=== PATIENT | female | born 1990 | race Caucasian/White ===

== ENCOUNTER 2018-08-26 01:01 | Inpatient (IN) | payer OTHER ==
[2018-08-26] MEDS ORDERED: LR 1,000 ML IV PRN (02:26)
[2018-08-26] MEDS ORDERED: IBUPROFEN 600 MG TAB PO PRN (02:26)
[2018-08-26] MEDS ORDERED: OLIVE OIL 118 ML BTL MISC PRN (02:26)
[2018-08-26] MEDS ORDERED: EPSOM SALT 454 GM TP PRN (02:26)
[2018-08-26] MEDS ORDERED: OXYTOCIN/RINGERS LACTATE 1,000 ML IV PRN (02:26)
[2018-08-26] MEDS ORDERED: LIDOCAINE 1% 300 MG/30 ML SDV SC PRN (02:26)
[2018-08-26] MEDS ORDERED: TERBUTALINE SULFATE 1 MG/ML VIAL IV PRN (02:26)
[2018-08-26] MEDS ORDERED: MISOPROSTOL 200 MCG TAB PR PRN (02:26)
--- NOTE | 2018-08-26 02:26 | PDGENHP ---
History and Physical History and Physical: Care: [facility] HPI: Patient is a [id number] with IUP@ 39-3 weeks that presents to L&D with complaints of contractions since 1900. she reports contractions q6min, rating them 6/10. She denies any LOF, VB. She reports +FM. EDC: 08/23/2018 which is based on LMP Her is complicated by: anemia, hypothyroid (dx'd in ) Review of Systems: Constitutional: Denies any fever, chills, or fatigue HEENT: denies any visual changes, difficulty swallowing, hearing loss Cardiovascular: Denies any chest pain, palpitations, leg swelling Respiratory: denies any cough, wheezing, or shortness of breathe GI: Denies any nausea, vomiting, diarrhea, constipation : denies any dysuria, urgency, frequency, vaginal bleeding Musculoskeletal: denies any muscle or bone pain Skin: denies any rashes Neuro: denies any headache, seizures, lightheadedness, dizziness, or loss of consciousness Psychiatric: denies any depression, anxiety, or SI/HI thoughts HISTORY: Previous OB history: x2, SAB x1 Past medical history: hypothyroid (dx'd in ) Past surgical history: none Social: Denies any alcohol, tobacco, or drug use. Family history: Not relevant Medications: PNV, iron, levothyroxine Allergies (list reaction): NKDA LABS: Rh: A+ ABS: Neg Rubella: Immune HbsAg: NR HIV: NR VDRL: NR 1hr: 109 GC: Neg Chlamydia: Neg Pap: Normal GBS: neg PHYSICAL EXAM: Constitutional: WN, A&Ox3 HEENT: normocephalic atraumatic, supple Skin: Warm, dry, intact Heart: RRR, no murmur Chest: CTA-B Abdomen: Soft, nontender, gravid SVE: 5/80/-2 Extremities: no edema, negative homans sign Neuro: grossly normal Psych: normal affect assessment: FHT baseline 125 +accels, no decels, moderate variability Contractions: toco q 2 Assessment: 1) [id number] with IUP@39-3wks 2) active labor 3) GBS negative 4) Cat 1 FHR tracing Plan: 1) Admit to L&D 2) expectant management 3) pain management PRN 4) anticipate Today's visit was [id number] min, of which >50% of visit 20 min, was spent face to face with pt on direct counseling/coordination of care.
[2018-08-26] MEDS ORDERED: LIDOCAINE 1% 300 MG/30 ML SDV ONE (03:50)
[2018-08-26] MEDS ORDERED: AMMONIA AROMATIC 1 EACH AMP IH ONE (03:51)
[2018-08-26] MEDS ORDERED: OXYTOCIN 10 UNIT/ML VIAL ONE (03:51)
[2018-08-26] MEDS ORDERED: TERBUTALINE SULFATE 1 MG/ML VIAL ONE (03:51)
[2018-08-26] MEDS ORDERED: OLIVE OIL 118 ML BTL ONE (03:51)
[2018-08-26] MEDS ORDERED: MISOPROSTOL 200 MCG TAB ONE (03:52)
[2018-08-26 03:55] LABS: PLATELET COUNT 201 10^3/uL (150-400)
--- NOTE | 2018-08-26 04:02 | OBPROG ---
Labor Progress Note Assessment/Plan: Assessment: [id number] with IUP@39-3wks Active labor GBS Negative Reassuring FHT's Plan: expectant management AROM PRN pain management PRN anticipate 08/26/18 03:59 Subjective/Intrapartum Course: 08/26/18 04:00 Pt reports pain with contractions, reports occ urge to push. desires SVE at this time. Objective: 08/26/18 03:40 - SVE Dilation (cm): 8 Effacement (%): 90 Station: -1 Membranes: Intact - Contraction Pattern Assessment Current Contraction Pattern: Regular - FHR Assessment Figueroa FHR (bpm): 125 CNM Assessment - Uterine Assessment Contraction Strength: Strong Uterine Resting Tone: Palpates Soft Between Uterine Contractions - Intermittent Auscultation Auscultation Method Used: Doppler Heart Rate Auscultated (bpm): 125 FHR Acceleration(s) Auscultated: Yes FHR Deceleration(s) Auscultated: No Oxytocin Orders Assessment - Pre-Induction/Augmentation Assessment Gestational Age: 39 week(s) and 3 day(s) ICD10 Worksheet Patient Problems: Problems Problem Status Onset Labor and delivery, indication for care Acute (spontaneous vaginal delivery) Acute - ICD10 Problem Qualifiers (1) Labor and delivery, indication for care
[2018-08-26] MEDS ORDERED: HYDROCORTISONE 0.5% CREAM TP PRN (05:17)
[2018-08-26] MEDS ORDERED: oxyCODONE IR 5 MG TAB PO PRN (05:17)
[2018-08-26] MEDS ORDERED: SIMETHICONE 80 MG TAB CHEW PO PRN (05:17)
--- NOTE | 2018-08-26 05:19 | OBDEL ---
Info Type: Vaginal Presentation at Delivery: Vertex L&D Analgesia/Anesthesia Type: None GBS+: No - Hospital Course Intrapartum: 08/26/18 04:00 Pt reports pain with contractions, reports occ urge to push. desires SVE at this time. Indications for Delivery: Spontaneous Labor, SROM Vaginal Delivery - Delivery Provider Delivery Physician/CNM: Sylvia Waller - Labor and Delivery Onset of Contractions Date: 08/25/18 Onset of Contractions Time: 19:00 Onset of Contractions Type: Spontaneous Rupture of Membranes Date: 08/26/18 Rupture of Membranes Time: 04:03 Rupture of Membranes Type: Spontaneous Amniotic Fluid Color: Clear Dilation Complete Date: 08/26/18 Dilation Complete Time: 04:03 Placenta Delivery Date: 08/26/18 Placenta Delivery Time: 04:53 Total Hours of Labor: 9 Laceration: 1st Degree Repair: 3-0, Vicryl Vaginal Sponge Count Correct: Yes Vaginal Needle Count Correct: Yes Vaginal Sweep Performed: Yes EBL: 150 Delivery Events: None Delivery Comment: delivered calmly unmedicated. baby to mom's chest. Spencer Data SILVESTRE: 08/30/18 Gestational Age: 39 week(s) and 3 day(s) Figueroa Delivery Date: 08/26/18 Delivery Time: 04:46 Sex of : Male Score (1 Min): 8 Score (5 Min): 8 ICD10 Worksheet Patient Problems: Problems Problem Status Onset Labor and delivery, indication for care Acute (spontaneous vaginal delivery) Acute - ICD10 Problem Qualifiers (1) Labor and delivery, indication for care
[2018-08-26] MEDS: ACETAMINOPHEN 325 MG TAB PO SCH ×4 (08:27→22:14)
[2018-08-26] MEDS: IBUPROFEN 600 MG TAB PO SCH ×4 (12:56→19:18)
[2018-08-26] MEDS: LEVOTHYROXINE 25 MCG TAB PO SCH (13:00)
[2018-08-27] MEDS: IBUPROFEN 600 MG TAB PO SCH ×4 (01:27→19:49)
[2018-08-27] MEDS: ACETAMINOPHEN 325 MG TAB PO SCH ×4 (04:24→19:50)
[2018-08-27] MEDS: LEVOTHYROXINE 25 MCG TAB PO SCH (04:24)
[2018-08-27] MEDS: DOCUSATE SODIUM 100 MG CAP PO PRN (07:16)
--- NOTE | 2018-08-27 11:10 | OBPP ---
Progress Note Assessment/Plan: Assessment: 27 y/o s/p ppd #1 Baby stable in NICU - r/o pneumonia vs TTN Plan: Routine pp care plan to d/c to boarder status tomorrow 08/27/18 11:05 08/27/18 11:16 Subjective/ Course: 08/27/18 11:10 Doing well. Pain well controlled with pain meds. Vag bleeding wnl, voiding, tolerating activity. Baby in NICU, on oxygen, receiving antibiotics while ruling out pneumonia vs TTN. going well with support. Objective: 08/26/18 03:40 Patient ABO/Rh A POSITIVE 08/26/18 03:40 Temp Pulse Resp BP Pulse Ox 36.3 C 70 18 99/64 L 97 08/27/18 07:30 08/27/18 07:30 08/27/18 07:30 08/27/18 07:30 08/27/18 07:30 Uterine Position/Fundal Height: Umbilicus -1 Uterine Tone: Firm Physical Exam - Physical Exam EENT: PERRL/EOMI Neck: full range of motion Respiratory: normal breath sounds Cardiac/Chest: regular rate, rhythm Extremities: normal range of motion Skin: normal color Neuro/Psych: no motor/sensory deficits, alert, normal mood/affect, oriented x 3
[2018-08-27 21:36] LABS: PLATELET COUNT 148 10^3/uL (150-400)
--- NOTE | 2018-08-27 21:52 | OBPP ---
Progress Note Assessment/Plan: Assessment: 27 y/o s/p ppd #1 Baby stable in NICU - r/o pneumonia vs TTN Plan: Routine pp care plan to d/c to boarder status tomorrow 08/27/18 11:05 08/27/18 11:16 08/27/18 21:49 notified by RN of patient temp of 102.7 po. Patient is having some chillling and headache, otherwise no other complaints. Uterus firm, non tender, U/2. Denies breast tenderness but reports breasts are filling. Will do CBC, UA - give tylenol po. Re check temp in [address] Tay. Subjective/ Course: 08/27/18 11:10 Doing well. Pain well controlled with pain meds. Vag bleeding wnl, voiding, tolerating activity. Baby in NICU, on oxygen, receiving antibiotics while ruling out pneumonia vs TTN. going well with support. Objective: 08/27/18 21:20 Patient ABO/Rh A POSITIVE 08/26/18 03:40 Temp Pulse Resp BP Pulse Ox 39.5 C H 116 H 18 115/65 97 08/27/18 21:06 08/27/18 19:37 08/27/18 19:37 08/27/18 19:37 08/27/18 19:37
[2018-08-27] MEDS: ACETAMINOPHEN 500 MG TAB PO PRN (22:14)
[2018-08-27] MEDS: NITROFURANTOIN MACROBID 100 MG CAP PO SCH (22:44)
[2018-08-28] MEDS: IBUPROFEN 600 MG TAB PO SCH ×4 (01:14→19:59)
[2018-08-28] MEDS: ACETAMINOPHEN 500 MG TAB PO PRN ×3 (04:39→20:30)
[2018-08-28] MEDS: LEVOTHYROXINE 25 MCG TAB PO SCH (04:40)
[2018-08-28] MEDS: NITROFURANTOIN MACROBID 100 MG CAP PO SCH (08:37)
[2018-08-28 09:19] LABS: PLATELET COUNT 149 10^3/uL (150-400)
[2018-08-28] MEDS ORDERED: CLINDAMYCIN 600 MG/DEXTROSE 50 ML IV SCH (09:32)
--- NOTE | 2018-08-28 09:59 | OBPP ---
Progress Note Assessment/Plan: Assessment: 27 y/o s/p ppd #2 pyelo vs endometritis Baby stable in NICU - r/o pneumonia vs TTN Plan: Continue to follow but hospitalist to manage care at this time IV Unasyn/Clindamycin Will stay on pp unit as long as remains stable 08/27/18 11:05 08/27/18 11:16 08/27/18 21:49 notified by RN of patient temp of 102.7 po. Patient is having some chillling and headache, otherwise no other complaints. Uterus firm, non tender, U/2. Denies breast tenderness but reports breasts are filling. Will do CBC, UA - give tylenol po. Re check temp in [address] Tay. 08/27/18 2300 Will treat for UTI based on UA results and send for culture. Continue to monitor temps and recheck CBC in AM. 08/28/18 10:04 Notified by phone at 0835 am by RN that pt had temp of 40.7, HR 130s, RR 30s, severe chilling, headache. Verbal orders for IV, CBC, blood cultures given. Stat team called. Dr Mcgraw notified. Dr Esparza at bedside upon arrival to hospital. See consult. Patient feeling much better at this time. Per Dr. Esparza - will start IV Unasyn/Clindamycin. Hospitalist team will continue to follow and manage care at this time. Will stay on pp unit for as long as she remains stable. Exam this AM suspicious for pyelo - having some increasing left flank pain overnight with definite left CVA tenderness this AM. Uterus firm U/2 with only mild tenderness to palpation - Vag bleeding WNL. Baby is stable this AM-blood cultures negative but will be staying for additional 5 days of antibiotics. Still on oxygen - well. 08/28/18 10:23 08/28/18 11:10 Subjective/ Course: 08/27/18 11:10 Doing well. Pain well controlled with pain meds. Vag bleeding wnl, voiding, tolerating activity. Baby in NICU, on oxygen, receiving antibiotics while ruling out pneumonia vs TTN. going well with support. Objective: 08/28/18 09:00 08/28/18 09:00 Patient ABO/Rh A POSITIVE 08/26/18 03:40 Total Bilirubin 0.7 mg/dL (0.1-1.4) 08/28/18 09:00 Conjugated Bilirubin 0.2 mg/dL (0.0-0.5) 08/28/18 09:00 Unconjugated Bilirubin 0.5 mg/dL (0.0-1.1) 08/28/18 09:00 AST 34 IU/L (14-46) 08/28/18 09:00 ALT 46 IU/L (9-52) 08/28/18 09:00 Temp Pulse Resp BP Pulse Ox 40.7 C H 138 H 24 H 111/63 92 08/28/18 08:40 08/28/18 08:40 08/28/18 08:40 08/28/18 08:40 08/28/18 08:40 Uterine Position/Fundal Height: Umbilicus -2 Uterine Tone: Firm Physical Exam - Physical Exam EENT: PERRL/EOMI Neck: non-tender Respiratory: lungs clear Cardiac/Chest: tachycardia Extremities: normal range of motion, pedal edema (mild pedal edema bilaterally) , calf tenderness (right calf tender to touch, no redness, swelling, barbara's negative) Back: CVA tenderness (left) Skin: other (febrile, warm to touch slightly flushed) Neuro/Psych: alert, normal mood/affect, oriented x 3
[2018-08-28] MEDS: AMPICILLIN/SULBACTAM 3 GM in NS 100 ML IV SCH ×2 (10:47→16:28)
[2018-08-28] MEDS: NS 1,000 ML IV SCH (11:25)
[2018-08-28] MEDS: CLINDAMYCIN 600 MG/DEXTROSE 50 ML IV SCH ×2 (12:20→19:59)
[2018-08-28] MEDS: FERROUS SULFATE 325 MG TAB PO SCH (13:36)
--- NOTE | 2018-08-28 15:59 | PDGENHP ---
History and Physical History and Physical: HOSPITAL MEDICINE CONSULT NOTE / CRITICAL CARE NOTE GREATER THAN 80 MIN OF CRITICAL CARE BEDSIDE TIME DURING 3 VISITS WITH THE PATIENT TODAY I was called to see the patient with the stat team due to acute sepsis. This patient was admitted to the hospital 2 days ago for routine delivery of her 3rd baby at 39+ gestation weeks. Her has been complicated so far by anemia and new onset hypothyroidism. She delivered her son that day, and overall he is doing well though he has had some respiratory issues and he is being treated for possible respiratory infection. The delivery was uncomplicated and the patient had been stable but last night had an episode of high fever. At that time a urine sample was obtained and showed evidence of some pyuria and so the patient was started on oral Macrobid. She does have 1 history of pyelonephritis, and apparently had a urine infection with a previous . Her fever resolved during the night, but again this morning she had temperatures of 40.5 degrees and developed hypotension and tachycardia resulting in a call for stat team. As I arrived at the bedside the patient is awake being tended to by the stat team. She has some normal saline that has been started as I arrive. Some blood has been obtained for culture and some CBC. The patient is oriented. She tells me that she feels sick and tired and too hot, with mild nausea. There is some very mild diffuse abdominal discomfort and some left flank ache, but no other pains. She does not specifically note dysuria. She has not vomited. She is not short of breath and does not have chest pain or cough and there is no pain in her legs. There is no headache, no flu-like symptoms or upper respiratory symptoms, and there has been no bleeding that we have noted. Vital signs at the time of my visit are temperature 40.5 degrees, pulse 140s, blood pressure 90/50 with previous blood pressures in the 110 systolic range and high 60s diastolic On my initial exam she is alert oriented, looks uncomfortable and fairly concerned about her acute situation Her respirations are relaxed and not labored Her skin is warm and dry with no rash, embolic phenomena, or open sores or lesions Her mentation is normal HEENT is unremarkable, neck has no goiter or tenderness or adenopathy No stridor Lungs have clear breath sounds Heart is regular with no murmur Abdomen is soft with normal bowel sounds present, and typical contour ; there is mild diffuse tenderness, without guarding or rebound but there is somewhat more significant tenderness at the left costovertebral angle. There are no palpable masses Extremities are warm and well perfused with good capillary refill and good color Joints are unremarkable IV site shows no signs of infection Blood test during my initial assessment show a white count [id number], with stable hemoglobin at 11 and stable mild low platelet count Her initial lactate is 2.1 venous with a slightly low CO2 at 20 but a normal anion gap, other chemistries unremarkable Review of last night's urinalysis shows mild pyuria with trace leukocyte esterase Imaging: I was present during abdominal ultrasound and the initial reading at the bedside is no abscess or signs of hemorrhage, no concerning findings other than acute changes Chest x-ray one view done and I reviewed the image which shows no acute abnormalities A Doppler ultrasounds done of the legs with no evidence of DVT DIAGNOSES: * acute sepsis with hypotension tachycardia high fevers elevated white blood cell count * absence of any acute organ injury initially * left flank pain and some hematuria and pyuria raising suspicion for pyelonephritis; the other differential diagnosis would be endometritis in terms of the cause of her sepsis * 2 days , with her son showing mild respiratory issues and being treated with antibiotics for suspected infection * expected anemia of RECOMMENDATIONS: * Sepsis protocol initiated with initial rapid aggressive IV fluid resuscitation * Blood cultures were obtained 2 sets * Macrobid discontinued * Empiric treatment right now with Unasyn and doxycycline to cover the range possible organisms in UTI and endometritis in the setting * Continue follow her course closely and make other changes as necessary
[2018-08-28] MEDS: MEROPENEM 1 GM in NS 100 ML IV SCH (22:11)
--- NOTE | 2018-08-28 22:57 | HOSPPROG ---
Hospitalist Progress Note Assessment/Plan: Additional 30 min of critical care time spent with this patient, specifically addressing her Serratia sepsis, which is currently rendering her critically ill with high risk of worsening morbidity and/or mortality. The following issues were addressed with the patient's nurse, coordinated with attending Dr. Mcgraw, and the patient was evaluated at bedside. -contacted by the nurse for recurrent fever, tachycardia -reviewed consultation note by Dr. Jae Esparza, reviewed business systems developer note,, reviewed vital sign trend which demonstrated hypotension earlier in the day, stabilization of her heart rate, and then acute worsening of her heart rate this evening with tachycardia up to 120-130, with recurrent fever -reviewed her labs and micro results, her urine culture is now growing Serratia -reviewed literature for Serratia sensitivities and resistance patterns, it appears that Serratia is frequently resistant to Unasyn, which the patient has been receiving today as empiric coverage for suspected left-sided pyelonephritis -physical exam demonstrates left flank tenderness, abdomen is soft, mostly nontender with no particular uterine tenderness, bowel sounds are present, heart rate is tachycardic, lungs are clear to auscultation but inspiratory effort is limited secondary to pain in the left flank, alert awake oriented x3, right upper extremity demonstrates some firm, mildly tender area at the previous IV site as well as some distal ecchymoses at a separate IV site on the dorsum of her right hand, current IV site does not have any swelling or induration and is proximal to the affected area -patient sources no other areas concern, she reports that her baby is latching well and she is not experiencing any mastitis -I suspect that the patient's persistent fever and recurrent tachycardia are indications that her infection is uncontrolled on the current antibiotic regimen and it is prudent to adjust her coverage to a carbapenemase which should cover serratia -discussed with Dr. Mcgraw, she has reviewed the literature and meropenem should be safe for breast-feeding, and will initiated at 1 g q.8 hours starting now -given her ongoing tachycardia, she is likely experiencing insensible losses, and although she is not currently hypotensive, I will increase her fluid rate from 100 cc/hour to 200 cc/hour and check venous lactic acid level to ensure that is not experiencing acute end-organ ischemia -I reassured the patient and her was at bedside -encourage the patient to elevate her right upper extremity, place warm compress for treatment of suspected superficial thrombophlebitis -I verbally signed out the patient to note keeper Dr. Conner Objective: Vital Signs Temp Pulse Resp BP Pulse Ox 40.2 C H 136 H 14 125/65 H 98 08/28/18 21:00 08/28/18 21:00 08/28/18 21:00 08/28/18 20:00 08/28/18 20:00 Laboratory Results 08/28/18 09:00 08/28/18 09:00 08/27/18 08/28/18 08/29/18 05:59 05:59 05:59 Intake Total 1000 2500 Output Total 150 750 Balance 850 1750 ICD10 Worksheet Patient Problems: Problems Problem Status Onset (spontaneous vaginal delivery) Acute Labor and delivery, indication for care Acute
[2018-08-29] MEDS ORDERED: NS 1,000 ML IV ONE (00:07)
[2018-08-29] MEDS: NS 1,000 ML IV SCH ×2 (02:02→15:27)
[2018-08-29] MEDS: IBUPROFEN 600 MG TAB PO SCH ×4 (02:02→17:27)
[2018-08-29] MEDS: LEVOTHYROXINE 25 MCG TAB PO SCH (06:18)
[2018-08-29 06:34] LABS: PLATELET COUNT 150 10^3/uL (150-400)
[2018-08-29] MEDS: MEROPENEM 1 GM in NS 100 ML IV SCH ×3 (07:07→22:27)
[2018-08-29] MEDS: DOCUSATE SODIUM 100 MG CAP PO PRN (08:13)
[2018-08-29] MEDS: FERROUS SULFATE 325 MG TAB PO SCH (08:13)
--- NOTE | 2018-08-29 10:58 | HOSPPROG ---
Hospitalist Progress Note Assessment/Plan: DIAGNOSES: * acute sepsis * acute pyelonephritis with Serratia marcescens and multiple drug resistance * with delivery of her son Vikash on 08/26 * side from infection no signs of complications of delivery for the patient; some with some mild respiratory issues needing oxygen and on antibiotic Overnight the patient had recurrent high fevers, low blood pressures, tachycardia, has responded to further IV fluid resuscitation. Lactate levels remain normal Urine cultures are growing a Serratia marcescens with multiple resistance to antibiotics including the Unasyn that we started yesterday, she is now on Merrem PLANS: * Continue IV fluids, follow vital signs very closely * Continue IV Merrem * Increase activity as tolerated * She can continue breast feeding * At this point DVT for prophylaxis should be considered, I will discuss with gynecology to see if she is low risk for bleeding which I would think she would be SUBJECTIVE: Somewhat tired, did not sleep well overnight with her illness and frequent interventions and nursing visits Still has flank pain which is now bilateral No other abdominal pain, eating well without nausea OBJECTIVE Vitals reviewed: 40.2 fever at 9:00 p.m. Last night, afebrile now; was hypotensive through some of the night but is with normal blood pressure and pulse now after further fluid resuscitations Offset Printer, my review: Exam: alert oriented, looks tired but in no distress, up walking about in her room skin warm dry color ok resps not labored lungs clear BSs heart regular abd still with some left-sided CVA tenderness, otherwise soft nondistended nontender, bowel sounds present limbs warm, no edema iv site ok Lab data: Lactic acid 1.2 last night White blood cell count today up 22,000, hemoglobin 9.2 Electrolytes and renal function okay, glucose normal Objective: Vital Signs Temp Pulse Resp BP Pulse Ox 36.6 C 92 16 114/78 98 08/29/18 09:45 08/29/18 09:45 08/29/18 09:45 08/29/18 09:45 08/29/18 09:45 Microbiology 08/27/18 21:45 Urine Culture - Final Urine,Clean Catch Serratia Marcescens Laboratory Results 08/29/18 06:00 08/29/18 06:00 08/28/18 08/29/18 08/30/18 06:59 06:59 06:59 Intake Total 5600 750 Output Total 2350 Balance 3250 750 - Time Spent With Patient Time Spent with Patient: greater than 35 minutes Time Spent with Patient: Greater than 35 minutes spent on this patients care, greater than 50% of time spent counseling, educating, and coordinating care regarding the above mentioned plan. ICD10 Worksheet Patient Problems: Problems Problem Status Onset Labor and delivery, indication for care Acute (spontaneous vaginal delivery) Acute
--- NOTE | 2018-08-29 11:14 | OBPP ---
Progress Note Assessment/Plan: Assessment: Plan: 08/29/18 11:13 Plan continued management by hospitalist, support by LC. Subjective/ Course: 08/27/18 11:10 Doing well. Pain well controlled with pain meds. Vag bleeding wnl, voiding, tolerating activity. Baby in NICU, on oxygen, receiving antibiotics while ruling out pneumonia vs TTN. going well with support. 08/29/18 11:11 Pt transferred to this morning. She is feeling well, except for chills. She is pumping, tolerating PO. Denies heavy bleeding, fundus firm at U. Objective: 08/29/18 06:00 08/29/18 06:00 Patient ABO/Rh A POSITIVE 08/26/18 03:40 Total Bilirubin 0.7 mg/dL (0.1-1.4) 08/28/18 09:00 Conjugated Bilirubin 0.2 mg/dL (0.0-0.5) 08/28/18 09:00 Unconjugated Bilirubin 0.5 mg/dL (0.0-1.1) 08/28/18 09:00 AST 34 IU/L (14-46) 08/28/18 09:00 ALT 46 IU/L (9-52) 08/28/18 09:00 Temp Pulse Resp BP Pulse Ox 36.6 C 92 16 114/78 98 08/29/18 09:45 08/29/18 09:45 08/29/18 09:45 08/29/18 09:45 08/29/18 09:45 Uterine Position/Fundal Height: At Umbilicus Uterine Tone: Firm
--- NOTE | 2018-08-29 12:00 | OBPP ---
Progress Note Assessment/Plan: Assessment: 27 y/o PPD #3 s/p uncomplicated now with urosepsis with Serratia Plan: Pt transferred to Medicine floor for careful monitoring today. She has been switched to Merrepenum for coverage and is doing much better. I added Lovenox 40 mg SQ for DVT prophylaxis. support for pumping for baby who is doing better in the NICU. Ob will follow along with Hospitalist. Thank you for medicine support. 08/29/18 12:01 Subjective/ Course: 08/27/18 11:10 Doing well. Pain well controlled with pain meds. Vag bleeding wnl, voiding, tolerating activity. Baby in NICU, on oxygen, receiving antibiotics while ruling out pneumonia vs TTN. going well with support. 08/29/18 11:11 Pt transferred to this morning. She is feeling well, except for chills. She is pumping, tolerating PO. Denies heavy bleeding, fundus firm at U. 08/29/18 11:48 I came to see and examine the patient this am. She has been transferred to Medicine floor, step down in order to closely monitor her vital signs and status because of urosepsis and decompensation yesterday. Last night she had episodes of high fevers, tachycardia and hypotension and had a stat team called yesterday afternoon. Overnight her urine culture revealed Serratia which was multi-drug resistant and she has been switched to Merrepenum. She feels better this am, has not had a fever. She reports some heaviness in her chest but not SOB. She reports mod back pain bilaterally, no dysuria, no fundal tenderness or other symptoms. She is working on pumping and her baby Vikash is doing much better in the NICU today. Objective: 08/29/18 06:00 08/29/18 06:00 Patient ABO/Rh A POSITIVE 08/26/18 03:40 Total Bilirubin 0.7 mg/dL (0.1-1.4) 08/28/18 09:00 Conjugated Bilirubin 0.2 mg/dL (0.0-0.5) 08/28/18 09:00 Unconjugated Bilirubin 0.5 mg/dL (0.0-1.1) 08/28/18 09:00 AST 34 IU/L (14-46) 08/28/18 09:00 ALT 46 IU/L (9-52) 08/28/18 09:00 Temp Pulse Resp BP Pulse Ox 36.6 C 92 16 114/78 98 08/29/18 09:45 08/29/18 09:45 08/29/18 09:45 08/29/18 09:45 08/29/18 09:45 Uterine Position/Fundal Height: Umbilicus -2 Uterine Tone: Firm Physical Exam - Physical Exam General Appearance: alert, no apparent distress Neck: non-tender, full range of motion, supple Respiratory: chest non-tender, lungs clear, normal breath sounds Cardiac/Chest: regular rate, rhythm Abdomen: normal bowel sounds, non-tender, other Extremities: swelling (no), Jennifer's sign (neg)
[2018-08-29] MEDS: ENOXAPARIN 40 MG/0.4 ML SYR SC SCH (12:35)
[2018-08-30] MEDS: IBUPROFEN 600 MG TAB PO SCH ×5 (01:08→21:54)
[2018-08-30] MEDS: ACETAMINOPHEN 500 MG TAB PO PRN ×2 (04:43→16:00)
[2018-08-30] MEDS: NS 1,000 ML IV SCH (05:16)
[2018-08-30] MEDS: MEROPENEM 1 GM in NS 100 ML IV SCH ×3 (06:04→21:54)
[2018-08-30] MEDS: LEVOTHYROXINE 25 MCG TAB PO SCH (06:05)
--- NOTE | 2018-08-30 06:09 | HOSPPROG ---
Hospitalist Progress Note Assessment/Plan: XC: Notified by RN of recurrent fever, tachycardia, and new hypoxia. During my evaluation patient is now requiring 6 L O2 and O2 sats remain only in the low 90s. I obtained a CXR (personally reviewed/interpreted) that reveals new RLL pneumonia and likely effusion. Early ARDS is also a possibility. The patient is complaining of labored breathing but otherwise asymptomatic. I discussed the case with Dr. Sarmiento of ID who suggested the possibility of septic thrombophlebitis in light of her recent delivery. As a result, I will evaluate for this with a CT scan as this would likely be an indication for anticoagulation. In addition, I will transfer patient to SDU for closer monitoring of her respiratory status. Dr. Sarmiento did not recommend change in her antibiotic therapy. GEN: Warm, sweating CV: rrr, no m/r/g RESP: Decreased RLL, no wheeze ABD: Non-tender, +BS NEURO: Alert, Ox3 Objective: Vital Signs Temp Pulse Resp BP Pulse Ox 38.1 C 103 H 18 110/62 92 08/30/18 04:45 08/30/18 04:45 08/30/18 04:45 08/30/18 04:45 08/30/18 04:45 Microbiology 08/27/18 21:45 Urine Culture - Final Urine,Clean Catch Serratia Marcescens Laboratory Results 08/29/18 06:00 08/29/18 06:00 08/29/18 08/30/18 08/31/18 05:59 05:59 05:59 Intake Total 5600 2000 Output Total 2350 600 Balance 3250 1400 ICD10 Worksheet Patient Problems: Problems Problem Status Onset (spontaneous vaginal delivery) Acute Labor and delivery, indication for care Acute
[2018-08-30] MEDS ORDERED: IOPAMIDOL (ISOVUE-300) 100 ML BTL ONE (06:10)
--- NOTE | 2018-08-30 09:02 | HOSPPROG ---
Hospitalist Progress Note Assessment/Plan: DIAGNOSES: * acute sepsis * acute pyelonephritis with Serratia marcescens and multiple drug resistance * with delivery of her son Vikash on 08/26 * side from infection no signs of complications of delivery for the patient; some with some mild respiratory issues needing oxygen and on antibiotic PLANS: * Stop IV fluids, one dose of lasix given (she had very large diuresis from this today and is now on room air comfortable with good sats * may need another dose of lasix over next day or two * Continue IV Merrem, and due to breast feeding will need to continue IV abx for her whole course, would not use levaquin * She can continue breast feeding * transfer back to mom baby unit this evening I have reivewed her findings and course and treatment plans in detail today with Dr Mancuso and Dr Sanders SUBJECTIVE: Early this a.m. became short of breath and hypoxemic. She does tell me that she had some pain in the chest with this and points to the right posterior lateral lower chest. She was started on oxygen by nasal cannula and felt much notably better. She was on 2 L nasal cannula during my visit with her this am and her pain is much less, though she does admit to some pleuritic pain at the anterior costal margins bilaterally. I ordered CT chest which showed no PE and evidence of some atelectasis and pleural effusion, some mild pulm edema. 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 I ordere CT chest and reviewed images: no PE, again are seen R pleural effusion and atelectasis, some mild pulmonary edema. I do not see changes that suggest to me pneumonia Microbiology: Blood cultures all negative so far Urine culture with Serratia with partial resistance to antibiotics but sensitive to the meropenem she is on Objective: Vital Signs Temp Pulse Resp BP Pulse Ox 36.9 C 85 16 110/77 95 08/30/18 07:21 08/30/18 07:21 08/30/18 07:21 08/30/18 07:21 08/30/18 07:21 Microbiology 08/27/18 21:45 Urine Culture - Final Urine,Clean Catch Serratia Marcescens Laboratory Results 08/29/18 06:00 08/29/18 06:00 08/29/18 08/30/18 08/31/18 06:59 06:59 06:59 Intake Total 5600 4100 Output Total 2350 1600 Balance 3250 2500 - Time Spent With Patient Time Spent with Patient: greater than 35 minutes Time Spent with Patient: Greater than 35 minutes spent on this patients care, greater than 50% of time spent counseling, educating, and coordinating care regarding the above mentioned plan. ICD10 Worksheet Patient Problems: Problems Problem Status Onset Labor and delivery, indication for care Acute (spontaneous vaginal delivery) Acute
[2018-08-30 09:20] LABS: PLATELET COUNT 160 10^3/uL (150-400)
[2018-08-30] MEDS: FERROUS SULFATE 325 MG TAB PO SCH (09:23)
[2018-08-30] MEDS: ENOXAPARIN 40 MG/0.4 ML SYR SC SCH (09:23)
[2018-08-30] MEDS ORDERED: IOPAMIDOL (ISOVUE 370) 100 ML BTL IV ONE (09:25)
--- NOTE | 2018-08-30 11:30 | GCON ---
INFECTIOUS DISEASE CONSULTATION REFERRING PHYSICIAN: J Carlos Conner MD REASON FOR CONSULTATION: Pyelonephritis due to more resistant Serratia. HISTORY OF PRESENT ILLNESS: This is a very pleasant 27-year-old woman, G4, P3, AB 1 with spontaneous vaginal delivery 08/26/2018, whose postoperative course has been complicated by high fever with evidence demonstrating Serratia UTI complicated by pyelonephritis. Patient was initially started on Unasyn and clindamycin, and on 08/28/2018, started on meropenem at 2200. Patient's left flank pain has resolved. Patient did not have polyuria, dysuria, etc. Overall , patient is still febrile, but the peak of her fever has overall declined from a T-max initially of 40.7 to currently 38.4. Patient did develop a leukocytosis of 21,000, 08/29/2018. Repeat labs have not been performed today. As an additional part of her workup, a CT abdomen, pelvis was performed that showed no intraabdominal septic thrombophlebitis. It is showed a enlarged uterus, which is expected , bilateral pleural effusion with infiltrates right greater than left, and left-sided pyelonephritis. This was personally reviewed by me with Radiology. Patient did not have Rose. Overnight, patient had increasing shortness of breath with mostly right-sided posterior pleuritic chest pain that is much improved since that time. She measured an O2 saturation of 77% on room air, had to initially be put on 6 L, but is now back down to 2 L at 95%. Overall, patient does describe feeling improved with less malaise and less left flank pain. PAST MEDICAL HISTORY: Positive for history of multiple UTIs, describes 2 UTIs per year since childhood. With each , she has had 1 UTI. Last antibiotics were in February for E coli. She does not remember, which antibiotic she received. She also has hypothyroidism and anemia during . PAST SURGICAL HISTORY: None. SOCIAL HISTORY: She is born and raised in [place]. She is . 2 other children. No alcohol, tobacco, or drug use. FAMILY HISTORY: Her father has diabetes, a history of blood clots. Also hypertension and cancer runs in the family. MEDICATIONS: She is on meropenem 1 g IV q.8. No immunosuppressants. She is on ppx with Lovenox. ALLERGIES: No known drug allergies. ROS: Complete 10 10 point review of systems was performed and is negative except as mentioned in HPI PHYSICAL EXAM: VITAL SIGNS: BP 110/77, HR 85, RR 16, saturation 95% on 2 L. In's and out's, she is positive 6 L. Weight is 84 kg. Temperature currently is 36.9. See T-max in HPI. GENERAL: This is a pleasant young woman lying in bed in no acute distress, speaking in complete sentences. HEENT: Mildly pale conjunctivae. No conjunctival hemorrhages. Oropharynx: Good dentition. Moist mucous membranes. No oral thrush. NECK: Supple. CARDIOVASCULAR: Regular rate and rhythm with an S3. No murmurs. CHEST: Bibasilar crackles about [address] No wheezes. She was breathing easy. ABDOMEN: Soft, nontender, consistent with status. She has no left or right flank pain. EXTREMITIES: She had some mild edema of all 4 extremities. SKIN: No rashes. NEUROLOGIC: She was moving all 4 extremities equally. Alert, oriented x4. LABORATORY/IMAGING: White count 21,000, hematocrit 27, platelets of 150, 83% neutrophils, 8% lymphocytes. Creatinine is 0.7. Labs from today are pending. Urinalysis from August 27 showed 10-15 RBCs, 5-10 WBCs, 4+ bacteria, negative glucose. Imaging as per HPI. In addition, patient had a chest x-ray, which showed bibasilar infiltrates, right greater than left. ASSESSMENT/PLAN: 27-year-old woman who is a couple days from delivery of a healthy baby boy who developed sepsis due to Serratia urinary tract infection. Serratia is only susceptible to carbapenems, aminoglycosides, and fluoroquinolones. During and breast-feeding, carbapenem will be the best choice for treating sepsis and pyelonephritis with a class B. Notably, patient's blood cultures have remained negative from the 28 of August. Generally, patient's hemodynamic trajectory is improving outside of fluctuating hypoxia. 1. Agree with meropenem for now. We will likely narrow to ertapenem tomorrow after further stabilization. Reviewed with patient and her that she will need a 2-week course of intravenous therapy. Discussed potential need for peripherally inserted central catheter line versus using peripheral intravenous. Also discussed the location of intravenous antibiotics either in the Infusion Center or at home. 2. Will continue to follow blood cultures. 3. Pulmonary workup per Critical Care team and General Medicine. Time 85 min >50% time spent with education and counseling regarding treatment of serratia, risks of antibiotics, need for 2 weeks of IV antibiotics, risk and benefits of PICC line. Also coordination of care with hospitalist and OB service. Thank you for this consultation. Will continue to see her on a daily basis. /[id number]/MODL MTDD
--- NOTE | 2018-08-30 11:40 | OBPP ---
Progress Note Assessment/Plan: Assessment/Plan: 27 yo G4 now P3013 PPD#4 s/p uncomplicated vaginal delivery, with PP course c/b L pyelonephritis and increased oxygen requirements this morning with R pleural effusion and atalectasis vs infiltrates. 1) pyelnephritis - Serratia marcescens - susceptible to merepenem. Continue/ adjust per ID 2) respiratory - increased O2 requirements this morning - atalectasis vs fluid overload vs pneumonia - will continue to observe per Medicine and Pulm 3) thrombotic precautions - is on 40mcg Lovenox daily (pp and sedentary) 4) pp - pumping, merepenem is Class B with . Continue routine pp cares and support. ID / Med / Pulm input and management greatly appreciated. Rena Phan MD, [facility] Subjective/ Course: 08/27/18 11:10 Doing well. Pain well controlled with pain meds. Vag bleeding wnl, voiding, tolerating activity. Baby in NICU, on oxygen, receiving antibiotics while ruling out pneumonia vs TTN. going well with support. 08/29/18 11:11 Pt transferred to this morning. She is feeling well, except for chills. She is pumping, tolerating PO. Denies heavy bleeding, fundus firm at U. 08/29/18 11:48 I came to see and examine the patient this am. She has been transferred to Medicine floor, step down in order to closely monitor her vital signs and status because of urosepsis and decompensation yesterday. Last night she had episodes of high fevers, tachycardia and hypotension and had a stat team called yesterday afternoon. Overnight her urine culture revealed Serratia which was multi-drug resistant and she has been switched to Merrepenum. She feels better this am, has not had a fever. She reports some heaviness in her chest but not SOB. She reports mod back pain bilaterally, no dysuria, no fundal tenderness or other symptoms. She is working on pumping and her baby Vikash is doing much better in the NICU today. 08/30/18 12:00 Pt was transferred back to the step down unit early this morning when she had sudden onset of increased O2 requirements. Currently she is resting comfortably , without any supplemental oxygen. Has been pumping and is doing well producing milk. Is voiding without difficulty. Lochia has decreased significantly, is changing a pad a few times per day. Objective: 08/30/18 09:10 08/30/18 09:10 Patient ABO/Rh A POSITIVE 08/26/18 03:40 Total Bilirubin 0.6 mg/dL (0.1-1.4) 08/30/18 09:10 Conjugated Bilirubin 0.2 mg/dL (0.0-0.5) 08/28/18 09:00 Unconjugated Bilirubin 0.5 mg/dL (0.0-1.1) 08/28/18 09:00 AST 22 IU/L (14-46) 08/30/18 09:10 ALT 34 IU/L (9-52) 08/30/18 09:10 Temp Pulse Resp BP Pulse Ox 36.9 C 85 16 110/77 95 08/30/18 07:21 08/30/18 07:21 08/30/18 07:21 08/30/18 07:21 08/30/18 07:21 gen - pleasant, NAD, resting comfortably in bed CV - RRR chest - decreased breath sounds at both bases, with crackles at R base abd - soft, + BS, fundus firm at u-4, NT ext -trace edema, no calf tenderness, Jennifer's neg BLE perineum - mild edema, repair is intact Uterine Position/Fundal Height: Umbilicus -3 (u-4) Uterine Tone: Firm
[2018-08-30] MEDS ORDERED: FUROSEMIDE 20 MG/2 ML VIAL IVP ONE (12:30)
[2018-08-30] MEDS ORDERED: POTASSIUM CL 20 MEQ/15 ML UDCUP PO ONE (12:30)
[2018-08-30] MEDS ORDERED: POTASSIUM CL 20 MEQ TAB PO ONE (12:45)
--- NOTE | 2018-08-30 13:41 | GCON ---
CRITICAL CARE CONSULT DATE OF CONSULTATION: 08/30/2018 HISTORY OF PRESENT ILLNESS: This patient is a 27-year-old mostly healthy female who was admitted , for routine term delivery, which was without complication; however, on 08/28, she developed a hig h fever. Urinalysis was suggestive of a urinary tract infection, and she had flank pain at the time. She was initially given Macrobid, but developed hypotension and tachycardia on the . Stat team was called. She was given IV fluids, and she responded quite well; however, her white count continu ed to rise to 21.8. Urine cultures eventually grew serratia, and she was started on meropenem late l ast evening; however, she developed significant rigors, which were associated with shortness of breat h and a nonproductive cough without hemoptysis. Her oxygen requirement, which was nil prior to the e vent, went up to 6 L, so she was moved to the step-down unit. There were no changes in her antibioti cs. A chest x-ray was performed that showed a new right lower lobe infiltrate, and her oxygen requir ement got better without much other change. She has continued to improve throughout the day today. She denies any cough or shortness of breath at this time, and her oxygen is 94% on room air. Her T-m ax, however, was 38.4. She has been seen by Infectious Disease. PAST MEDICAL HISTORY: Includes anemia, hypothyroidism, and remote pyelonephritis. PAST SURGICAL HISTORY: None. SOCIAL HISTORY: She is a nonsmoker. No alcohol or IV drug use. FAMILY HISTORY: Noncontributory at this time. CURRENT MEDICATIONS: Include Colace, Lovenox, iron, topical hydrocortisone, ibuprofen, Synthroid, me ropenem, Cytotec, oxycodone, Mylicon, terbutaline p.r.n. (I think that was once.) PHYSICAL EXAM: VITAL SIGNS: As I said, her T-max was 38.4; that was at 4 a.m. today. T-current is 36.6, blood pressure is 113/75, heart rate 95, respirations 20, oxygen saturation 96% on room air. G ENERAL: She is a very pleasant woman in no apparent distress and able to speak in full sentences wit hout using accessory muscles for breathing. HEENT: Pupils equally round and reactive to light, maldonado cteric and noninjected. Mucous membranes are moist without erythema or exudate. NECK: Supple witho ut adenopathy or jugular vein distention. LUNGS: Breath sounds are distant, but clear to auscultati on bilaterally without wheeze, rubs, rales. HEART: Regular rate and rhythm without murmurs, rubs, g allops. ABDOMEN: Soft, nontender, nondistended. EXTREMITIES: Show no clubbing, cyanosis, or edema . OBJECTIVE DATA: Includes a chest x-ray, as described above. The white count down to 16.2 today, hem atocrit of 25, platelets of 160. Basic metabolic panel is essentially normal, save for potassium 3.0 , bicarb of 18, albumin 2.2. CT angiogram showing patchy reticular infiltrates, right greater than left, with small bilateral effu sions, right greater than left, but no pulmonary embolism. ASSESSMENT/PLAN: Hypoxemia that appears to have been fairly transient. It is possible she has a blo ssoming pneumonia after she had received some fluids because of the urinary tract infection. Her inf iltrates are somewhat atypical, but they do not look completely like atelectasis since they do appear to be in the upper lobes. In any case, she has been seen by Infectious Disease. She is going to co ntinue meropenem for now. Follow up with cultures, and we may change those antibiotics depending on how well she does. Her oxygenation is completely resolved at this point. She can probably leave the step-down unit. /[id number]/MODL
[2018-08-31] MEDS: LEVOTHYROXINE 25 MCG TAB PO SCH (05:04)
[2018-08-31] MEDS: IBUPROFEN 600 MG TAB PO SCH ×3 (05:05→16:57)
[2018-08-31 05:24] LABS: PLATELET COUNT 208 10^3/uL (150-400)
[2018-08-31] MEDS: MEROPENEM 1 GM in NS 100 ML IV SCH (05:33)
[2018-08-31] MEDS: ENOXAPARIN 40 MG/0.4 ML SYR SC SCH (08:42)
[2018-08-31] MEDS: DOCUSATE SODIUM 100 MG CAP PO PRN (08:44)
[2018-08-31] MEDS: FERROUS SULFATE 325 MG TAB PO SCH (08:44)
--- NOTE | 2018-08-31 09:06 | SOAPPROG ---
SOAP Progress Note Assessment/Plan: 08/29/18 @ 1245 Pt seen by CNM Pt on med surg floor 2/2 oxygen sat and fever, r/o sepsis. She is being managed by hospitalist at this time. CNMs will cont to see daily, for social visits/ rounds. Pt is ambulatory and alert. She reports feeling ok, reports fevers/chills. Baby is in NICU on O2 and getting abx but overall improving. Mom is /pumping- with good milk supply. Her has been present, today back at work. Uterus is firm and U-2, bleeding scant. perineum healing well. will defer to medicine for plan of care. Objective: Vital Signs Temp Pulse Resp BP Pulse Ox 37.2 C 84 16 116/81 H 92 08/31/18 05:00 08/31/18 05:00 08/31/18 05:00 08/31/18 05:00 08/31/18 05:00 Laboratory Results 08/31/18 05:10 08/30/18 09:10 08/30/18 08/31/18 09/01/18 05:59 05:59 05:59 Intake Total 4100 3420 Output Total 1600 Balance 2500 3420 ICD10 Worksheet Patient Problems: Problems Problem Status Onset Labor and delivery, indication for care Acute (spontaneous vaginal delivery) Acute - ICD10 Problem Qualifiers (1) Labor and delivery, indication for care
--- NOTE | 2018-08-31 09:11 | SOAPPROG ---
LATISHA Progress Note Assessment/Plan: 08/31/18 @0845 Pt seen by CNM Pt stable and back on MB/NICU. CNM's will cont to see daily, for social visits/ rounds. Pt is ambulatory and alert. She reports significant improvement since dieretic given, she denies any CP/SOB. reports last fever yesterday afternoon. She has been ambulating. She is - which is going well, states Vikash is latching well. She is also continuing to pump. Milk supply good. Baby, Vikash, is in NICU- stable but on O2. Uterus is firm and U-3, bleeding scant. perineum healing well. ID / Med / Pulm input and management greatly appreciated. Objective: Vital Signs Temp Pulse Resp BP Pulse Ox 37.2 C 84 16 116/81 H 92 08/31/18 05:00 08/31/18 05:00 08/31/18 05:00 08/31/18 05:00 08/31/18 05:00 Laboratory Results 08/31/18 05:10 08/30/18 09:10 08/30/18 08/31/18 09/01/18 05:59 05:59 05:59 Intake Total 4100 3420 Output Total 1600 Balance 2500 3420 ICD10 Worksheet Patient Problems: Problems Problem Status Onset Labor and delivery, indication for care Acute (spontaneous vaginal delivery) Acute - ICD10 Problem Qualifiers (1) Labor and delivery, indication for care
--- NOTE | 2018-08-31 09:39 | OBPP ---
Progress Note Assessment/Plan: Assessment: Pt is s/p uncomplicated vaginal delivery PPD #5 with PP course c/b L pyelonephritis with serratia and increased oxygen requirements yesterday morning with R pleural effusion and atelectasis vs infiltrates Plan: Continue routine pp care and support Pt afebrile this am and stable Continue IV abx - merepenam which is susceptible to serratia per ID Pt not requiring oxygen this am, s/p lasix - likely fluid overload and not pneumonia ID / Med / Pulm input and management greatly appreciated 08/31/18 09:44 Subjective/ Course: 08/27/18 11:10 Doing well. Pain well controlled with pain meds. Vag bleeding wnl, voiding, tolerating activity. Baby in NICU, on oxygen, receiving antibiotics while ruling out pneumonia vs TTN. going well with support. 08/29/18 11:11 Pt transferred to this morning. She is feeling well, except for chills. She is pumping, tolerating PO. Denies heavy bleeding, fundus firm at U. 08/29/18 11:48 I came to see and examine the patient this am. She has been transferred to Medicine floor, step down in order to closely monitor her vital signs and status because of urosepsis and decompensation yesterday. Last night she had episodes of high fevers, tachycardia and hypotension and had a stat team called yesterday afternoon. Overnight her urine culture revealed Serratia which was multi-drug resistant and she has been switched to Merrepenum. She feels better this am, has not had a fever. She reports some heaviness in her chest but not SOB. She reports mod back pain bilaterally, no dysuria, no fundal tenderness or other symptoms. She is working on pumping and her baby Vikash is doing much better in the NICU today. 08/30/18 12:00 Pt was transferred back to the step down unit early this morning when she had sudden onset of increased O2 requirements. Currently she is resting comfortably , without any supplemental oxygen. Has been pumping and is doing well producing milk. Is voiding without difficulty. Lochia has decreased significantly, is changing a pad a few times per day. 08/31/18 09:40 Pt seen and examined. Pt is feeling much better this morning. Notes some mild cramping, but relief with Motrin. Minimal bleeding. Chava regular diet and voiding without difficulty. Denies any f/c/n/v/CP or SOB. No supplemental oxygen needed this am. She continues to pump and is producing milk. Baby boy is in NICU. Objective: 08/31/18 05:10 08/30/18 09:10 Patient ABO/Rh A POSITIVE 08/26/18 03:40 Total Bilirubin 0.6 mg/dL (0.1-1.4) 08/30/18 09:10 Conjugated Bilirubin 0.2 mg/dL (0.0-0.5) 08/28/18 09:00 Unconjugated Bilirubin 0.5 mg/dL (0.0-1.1) 08/28/18 09:00 AST 22 IU/L (14-46) 08/30/18 09:10 ALT 34 IU/L (9-52) 08/30/18 09:10 Temp Pulse Resp BP Pulse Ox 36.6 C 71 16 123/85 H 94 08/31/18 08:00 08/31/18 08:00 08/31/18 08:00 08/31/18 08:00 08/31/18 08:00 Uterine Position/Fundal Height: Umbilicus -3 Uterine Tone: Firm Physical Exam - Physical Exam General Appearance: WD/WN, alert, no apparent distress Respiratory: lungs clear, normal breath sounds Cardiac/Chest: regular rate, rhythm Abdomen: normal bowel sounds, non-tender, soft Extremities: non-tender, normal inspection Skin: normal color, warm/dry Neuro/Psych: alert, normal mood/affect, oriented x 3
--- NOTE | 2018-08-31 09:44 | PCMIDPN ---
Assessment/Plan: #Flora pyelonephritis: much improved today, blood cx remain negative. Due to susceptibility pattern of Serratia + breast feeding (cannot use FQ) obligates to carbapenem --change to Ertapenem 1gm IV, stop date 09/11 --planning on trying to use PIV. inability to lift 10# w picc line is fairly limiting to this young mother --outpatient ID f/u not needed immediately for above problem, but could follow up with us for recurrent UTI in the future --dc meropenem Subjective: patient feeling MUCH better today, breathing easier mild L flank pain Objective: Vital Signs Temp Pulse Resp BP Pulse Ox 36.6 C 71 16 123/85 H 94 08/31/18 08:00 08/31/18 08:00 08/31/18 08:00 08/31/18 08:00 08/31/18 08:00 Laboratory Results 08/31/18 05:10 08/30/18 09:10 08/30/18 08/31/18 09/01/18 05:59 05:59 05:59 Intake Total 4100 3420 Output Total 1600 Balance 2500 3420 - Physical Exam General Appearance: alert, no apparent distress EENT: pale conjunctiva Respiratory: other (R base crackles), No accessory muscle use Cardiac/Chest: regular rate, rhythm Extremities: No pedal edema Abdomen: non-tender, soft, other (Mild L flank pain) Skin: No rash Neuro/Psych: alert, normal mood/affect, oriented x 3 - Time Spent With Patient Time Spent with Patient: greater than 35 minutes (care coordinated with RNs, case management and OB team) Time Spent with Patient: Greater than 35 minutes spent on this patients care, greater than 50% of time spent counseling, educating, and coordinating care regarding the above mentioned plan. ICD10 Worksheet Patient Problems: Problems Problem Status Onset Labor and delivery, indication for care Acute (spontaneous vaginal delivery) Acute
--- NOTE | 2018-08-31 10:01 | PDIAF ---
- Diagnosis Diagnosis: Serratia Pyelonephritis - Medication Management Discharge Medications: Medications to Continue on Transfer Ferrous Sulfate [Ferrous Sulf 325 MG (*)] 325 mg PO DAILY 08/30/18 [Last Taken Unknown] Levothyroxine [Synthroid 25 mcg (*)] 25 mcg PO DAILY06 08/30/18 [Last Taken Unknown] Vit27&Calcium/Iron/FA [ Rx 1 Tablet (RX)] 1 each PO DAILY 08/30 [Last Taken Unknown] Halfway Antibiotics: ertapenem 1gm IV daily Halfway Antibiotic Stop Date: 09/11/18 Additional Medication Instructions: Administer via PIV, can leave PIV in place per protocol Discharge Medications: Refer to the Discharge Home Medication list for PRN reason. PICC Care - Routine: N/A - Labs/Radiology CBC w/diff Date: 09/05/18 (weekly wednesday) CMP Date: 09/05/18 (weekly wednesday) Call or Fax Lab and Imaging Results to: Jill Mancuso MD [facility] at fax [phone] - Follow Up Care Current Providers and Referrals: Patient,NotPresent [Primary Care Provider] - Jill Mancuso MD [Medical Doctor] -
--- NOTE | 2018-08-31 10:25 | ASMTCMCOM ---
CM Note CM Note Notes: Spoke with Dr. Mancuso who requested help in arranging antibiotics for this new mom. She will require infusion through 09/11/2018 and this will be via peripheral IVBC. [facility] CM to follow. Patient likely here through Wednesday. Plan: To require infusion of antibiotics daily. Date Signed: 08/31/2018 10:25 AM Electronically Signed By:Neyda Rodriges RN
[2018-08-31] MEDS: ERTAPENEM 1 GM in NS 100 ML IV SCH (12:00)
[2018-08-31] MEDS ORDERED: PROTOCOL POTASSIUM 1 DOSE MISC PRN (15:24)
[2018-08-31] MEDS ORDERED: PROTOCOL MAGNESIUM 1 DOSE IV PRN (15:24)
--- NOTE | 2018-08-31 15:27 | HOSPPROG ---
Hospitalist Progress Note Assessment/Plan: DIAGNOSES: * acute sepsis * acute pyelonephritis with Serratia marcescens and multiple drug resistance * with delivery of her son Vikash on 08/26 *Hypoxemia *Hypokalemia PLANS: * consider additional Lasix tomorrow if still falling below 90% oxygenation * Meropenem IV per ID * post care * repeat K and replace as needed. check mg. replace electrolytes per protocol Subjective: feels better. O2 sats occassionaly dip below 90%. She denies cp or sob Objective: Vital Signs Temp Pulse Resp BP Pulse Ox 36.6 C 71 16 123/85 H 94 08/31/18 08:00 08/31/18 08:00 08/31/18 08:00 08/31/18 08:00 08/31/18 08:00 Laboratory Results 08/31/18 05:10 08/30/18 09:10 08/30/18 08/31/18 09/01/18 05:59 05:59 05:59 Intake Total 4100 3420 Output Total 1600 Balance 2500 3420 - Physical Exam Constitutional: no apparent distress Eyes: PERRL Ears, Nose, Mouth, Throat: moist mucous membranes, hearing normal Cardiovascular: regular rate and rhythym, no murmur, rub, or gallop, edema ( trace LE edema) Respiratory: reduced air movement Gastrointestinal: normoactive bowel sounds, soft, non-tender abdomen Skin: warm Neurologic: AAOx3 Psychiatric: interacting appropriately, not anxious, not encephalopathic Lymph, Heme, Immunologic: No petechiae ICD10 Worksheet Patient Problems: Problems Problem Status Onset Labor and delivery, indication for care Acute (spontaneous vaginal delivery) Acute
[2018-08-31] MEDS: ACETAMINOPHEN 500 MG TAB PO PRN (19:59)
[2018-08-31] MEDS ORDERED: POTASSIUM CL 10 MEQ TAB PO ONE (21:16)
[2018-09-01] MEDS: IBUPROFEN 600 MG TAB PO SCH ×4 (01:04→18:14)
[2018-09-01] MEDS: LEVOTHYROXINE 25 MCG TAB PO SCH (06:06)
--- NOTE | 2018-09-01 08:23 | PCMIDPN ---
Assessment/Plan: #Serratia pyelonephritis: continued improvement today. Fever overnight not entirely unexpected with pyelonephritis. Due to susceptibility pattern of Serratia + breast feeding (cannot use FQ) obligates to carbapenem --continue Ertapenem 1gm IV, stop date 09/11, utilizing PIV. If there are days left on PIV placed in house, can leave this in at discharge --home IV antibiotics arranged yesterday --will follow blood cx but doubt they will be positive at this point. --no further blood cx unless other clinical change (not just fever alone) --please call ID for additional questions micro 08/28 blood cx (2) NGTD 08/31 Blood cx (2) pending meds ertapenem 1gm IV daily Subjective: feeling well no c/o no diarrhea not worried about fever Objective: Vital Signs Temp Pulse Resp BP Pulse Ox 36.7 C 63 16 112/81 H 96 09/01/18 05:00 09/01/18 05:00 09/01/18 05:00 09/01/18 05:00 09/01/18 05:00 Laboratory Results 08/31/18 05:10 09/01/18 06:08 08/31/18 09/01/18 09/02/18 05:59 05:59 05:59 Intake Total 3420 500 Output Total 1200 Balance 3420 -700 - Physical Exam General Appearance: alert, no apparent distress EENT: No scleral icterus Respiratory: other (few scattered crackles in the bases), No accessory muscle use Cardiac/Chest: regular rate, rhythm Abdomen: normal bowel sounds, non-tender, soft, other (no flank pain) Skin: No rash Neuro/Psych: alert, normal mood/affect, oriented x 3 - Time Spent With Patient Time Spent with Patient: greater than 25 minutes Time Spent with Patient: Greater than 25 minutes spent on this patients care, greater than 50% of time spent counseling, educating, and coordinating care regarding the above mentioned plan. ICD10 Worksheet Patient Problems: Problems Problem Status Onset Labor and delivery, indication for care Acute (spontaneous vaginal delivery) Acute
[2018-09-01] MEDS: DOCUSATE SODIUM 100 MG CAP PO PRN (08:27)
[2018-09-01] MEDS: ENOXAPARIN 40 MG/0.4 ML SYR SC SCH (08:27)
[2018-09-01] MEDS: FERROUS SULFATE 325 MG TAB PO SCH (08:27)
[2018-09-01] MEDS ORDERED: POTASSIUM CL 10 MEQ TAB PO ONE ×2 (08:30→21:41)
--- NOTE | 2018-09-01 10:27 | ASMTCMCOM ---
CM Note CM Note Notes: Per [facility] the patient's IV antibiotics are covered. She has [facility] [employer] insurance and so far it has been difficult to find [facility] company to accept. [facility], also reached out to [facility] as they may have more insight to companies that accept this insurance. CM to follow. Plan: Home with infusion versus outpatient infusion center. Date Signed: 09/01/2018 10:26 AM Electronically Signed By:Neyda Rodriges RN
--- NOTE | 2018-09-01 11:08 | OBPP ---
Progress Note Assessment/Plan: Assessment: 27 y/o s/p ppd # 6 pyelonephritis- managed by hospitalist and infectious disease going well Baby stable in NICU - potentially will be discharged tomorrow Plan: Routine PP care Potentially will discharge tomorrow if released by hospitalist/infectious disease 08/27/18 11:05 08/27/18 11:16 08/27/18 21:49 notified by RN of patient temp of 102.7 po. Patient is having some chillling and headache, otherwise no other complaints. Uterus firm, non tender, U/2. Denies breast tenderness but reports breasts are filling. Will do CBC, UA - give tylenol po. Re check temp in [address] Tay. 08/27/18 2300 Will treat for UTI based on UA results and send for culture. Continue to monitor temps and recheck CBC in AM. 08/28/18 10:04 Notified by phone at 0835 am by RN that pt had temp of 40.7, HR 130s, RR 30s, severe chilling, headache. Verbal orders for IV, CBC, blood cultures given. Stat team called. Dr Mcgraw notified. Dr Esparza at bedside upon arrival to hospital. See consult. Patient feeling much better at this time. Per Dr. Esparza - will start IV Unasyn/Clindamycin. Hospitalist team will continue to follow and manage care at this time. Will stay on pp unit for as long as she remains stable. Exam this AM suspicious for pyelo - having some increasing left flank pain overnight with definite left CVA tenderness this AM. Uterus firm U/2 with only mild tenderness to palpation - Vag bleeding WNL. Baby is stable this AM-blood cultures negative but will be staying for additional 5 days of antibiotics. Still on oxygen - well. 08/28/18 10:23 08/28/18 11:10 09/01/18 11:00 Subjective/ Course: 08/27/18 11:10 Doing well. Pain well controlled with pain meds. Vag bleeding wnl, voiding, tolerating activity. Baby in NICU, on oxygen, receiving antibiotics while ruling out pneumonia vs TTN. going well with support. 08/29/18 11:11 Pt transferred to this morning. She is feeling well, except for chills. She is pumping, tolerating PO. Denies heavy bleeding, fundus firm at U. 08/29/18 11:48 I came to see and examine the patient this am. She has been transferred to Medicine floor, step down in order to closely monitor her vital signs and status because of urosepsis and decompensation yesterday. Last night she had episodes of high fevers, tachycardia and hypotension and had a stat team called yesterday afternoon. Overnight her urine culture revealed Serratia which was multi-drug resistant and she has been switched to Merrepenum. She feels better this am, has not had a fever. She reports some heaviness in her chest but not SOB. She reports mod back pain bilaterally, no dysuria, no fundal tenderness or other symptoms. She is working on pumping and her baby Vikash is doing much better in the NICU today. 08/30/18 12:00 Pt was transferred back to the step down unit early this morning when she had sudden onset of increased O2 requirements. Currently she is resting comfortably , without any supplemental oxygen. Has been pumping and is doing well producing milk. Is voiding without difficulty. Lochia has decreased significantly, is changing a pad a few times per day. 08/31/18 09:40 Pt seen and examined. Pt is feeling much better this morning. Notes some mild cramping, but relief with Motrin. Minimal bleeding. Chava regular diet and voiding without difficulty. Denies any f/c/n/v/CP or SOB. No supplemental oxygen needed this am. She continues to pump and is producing milk. Baby boy is in NICU. 09/01/18 11:08 Doing well today. Feeling good. Pain well controlled with oral pain meds. Voiding and tolerating activity. Potential discharge tomorrow per infectious disease physician. Objective: 08/31/18 05:10 09/01/18 06:08 Patient ABO/Rh A POSITIVE 08/26/18 03:40 Total Bilirubin 0.6 mg/dL (0.1-1.4) 08/30/18 09:10 Conjugated Bilirubin 0.2 mg/dL (0.0-0.5) 08/28/18 09:00 Unconjugated Bilirubin 0.5 mg/dL (0.0-1.1) 08/28/18 09:00 AST 22 IU/L (14-46) 08/30/18 09:10 ALT 34 IU/L (9-52) 08/30/18 09:10 Temp Pulse Resp BP Pulse Ox 36.6 C 58 L 16 120/84 H 95 09/01/18 08:24 09/01/18 08:24 09/01/18 08:24 09/01/18 08:24 09/01/18 08:24 Uterine Position/Fundal Height: Umbilicus -2 Uterine Tone: Firm Physical Exam - Physical Exam EENT: PERRL/EOMI Neck: non-tender Respiratory: lungs clear Cardiac/Chest: regular rate, rhythm Extremities: normal range of motion Back: Normal inspection Skin: normal color Neuro/Psych: no motor/sensory deficits, alert, normal mood/affect, oriented x 3
[2018-09-01] MEDS: ERTAPENEM 1 GM in NS 100 ML IV SCH (12:03)
[2018-09-01] MEDS ORDERED: FUROSEMIDE 20 MG TAB PO ONE (14:50)
--- NOTE | 2018-09-01 14:53 | HOSPPROG ---
Hospitalist Progress Note Assessment/Plan: DIAGNOSES: * acute sepsis * acute pyelonephritis with Serratia marcescens and multiple drug resistance * with delivery of her son Vikash on 08/26 *Hypoxemia, worse with exertion *Hypokalemia PLANS: * PO Lasix x 1 * Meropenem IV per ID, through 09/11 * post care * replace electrolytes as needed Subjective: still with some SOB with exertion. Needing O2 when asleep Objective: Vital Signs Temp Pulse Resp BP Pulse Ox 36.6 C 69 16 128/85 H 97 09/01/18 12:09 09/01/18 12:09 09/01/18 12:09 09/01/18 12:09 09/01/18 12:09 Laboratory Results 08/31/18 05:10 09/01/18 06:08 08/31/18 09/01/18 09/02/18 05:59 05:59 05:59 Intake Total 3420 500 Output Total 1200 Balance 3420 -700 - Physical Exam Constitutional: no apparent distress Eyes: PERRL Ears, Nose, Mouth, Throat: moist mucous membranes, hearing normal Cardiovascular: regular rate and rhythym, no murmur, rub, or gallop, edema ( trace LE edema) Respiratory: no respiratory distress, no rales or rhonchi, clear to auscultation Gastrointestinal: normoactive bowel sounds Skin: warm Neurologic: AAOx3 Psychiatric: interacting appropriately, not anxious, not encephalopathic Lymph, Heme, Immunologic: No petechiae ICD10 Worksheet Patient Problems: Problems Problem Status Onset Labor and delivery, indication for care Acute (spontaneous vaginal delivery) Acute
--- NOTE | 2018-09-01 18:17 | OBPP ---
Progress Note Assessment/Plan: Assessment: PPD 6 s/p - doing well with minimal bleeding, BF/pumping well acute sepsis with pyelo on PPD 2 - improved on IV abx, plan to cont until 09/11 through home health. hypoxemic while sleeping - rec'd 2 doses Lasix - pneumonia ruled out neg bld cx but redone last noc - pnd baby on IV abx for 7 d - done tomorrow, clinically doing well Plan: cont and appreciate management for medical complications through hospitalist and ID hope for pt d/c tomorrow 09/01/18 18:12 Subjective/ Course: 08/27/18 11:10 Doing well. Pain well controlled with pain meds. Vag bleeding wnl, voiding, tolerating activity. Baby in NICU, on oxygen, receiving antibiotics while ruling out pneumonia vs TTN. going well with support. 08/29/18 11:11 Pt transferred to this morning. She is feeling well, except for chills. She is pumping, tolerating PO. Denies heavy bleeding, fundus firm at U. 08/29/18 11:48 I came to see and examine the patient this am. She has been transferred to Medicine floor, step down in order to closely monitor her vital signs and status because of urosepsis and decompensation yesterday. Last night she had episodes of high fevers, tachycardia and hypotension and had a stat team called yesterday afternoon. Overnight her urine culture revealed Serratia which was multi-drug resistant and she has been switched to Merrepenum. She feels better this am, has not had a fever. She reports some heaviness in her chest but not SOB. She reports mod back pain bilaterally, no dysuria, no fundal tenderness or other symptoms. She is working on pumping and her baby Vikash is doing much better in the NICU today. 08/30/18 12:00 Pt was transferred back to the step down unit early this morning when she had sudden onset of increased O2 requirements. Currently she is resting comfortably , without any supplemental oxygen. Has been pumping and is doing well producing milk. Is voiding without difficulty. Lochia has decreased significantly, is changing a pad a few times per day. 08/31/18 09:40 Pt seen and examined. Pt is feeling much better this morning. Notes some mild cramping, but relief with Motrin. Minimal bleeding. Chava regular diet and voiding without difficulty. Denies any f/c/n/v/CP or SOB. No supplemental oxygen needed this am. She continues to pump and is producing milk. Baby boy is in NICU. 09/01/18 11:08 Doing well today. Feeling good. Pain well controlled with oral pain meds. Voiding and tolerating activity. Potential discharge tomorrow per infectious disease physician. 09/01/18 18:17 Pt appears good today. Minimally bleeding and urinating fine. some flank pain , lessening. BF well and also pumping and milk supported well. Excited about being able to get abx through home health. Mood doing ok. per hospitalist - rec'd additional Lasix for some SOB with exertion Objective: 08/31/18 05:10 09/01/18 06:08 Patient ABO/Rh A POSITIVE 08/26/18 03:40 Total Bilirubin 0.6 mg/dL (0.1-1.4) 08/30/18 09:10 Conjugated Bilirubin 0.2 mg/dL (0.0-0.5) 08/28/18 09:00 Unconjugated Bilirubin 0.5 mg/dL (0.0-1.1) 08/28/18 09:00 AST 22 IU/L (14-46) 08/30/18 09:10 ALT 34 IU/L (9-52) 08/30/18 09:10 Temp Pulse Resp BP Pulse Ox 36.5 C 59 L 16 123/83 H 96 09/01/18 16:00 09/01/18 16:00 09/01/18 16:00 09/01/18 16:00 09/01/18 16:00 Uterine Position/Fundal Height: Umbilicus -1 Uterine Tone: Firm Physical Exam - Physical Exam Respiratory: decreased breath sounds (bilat, right greater than left, no crackles heard) Cardiac/Chest: regular rate, rhythm Abdomen: non-tender, soft Extremities: non-tender, pedal edema (mild) Skin: normal color, warm/dry Neuro/Psych: alert, normal mood/affect
[2018-09-02] MEDS: IBUPROFEN 600 MG TAB PO SCH ×3 (00:50→11:45)
[2018-09-02] MEDS: LEVOTHYROXINE 25 MCG TAB PO SCH (06:07)
[2018-09-02] MEDS ORDERED: MAGNESIUM SULF 1 GM/DEXTROSE 100 ML IV ONE (08:00)
[2018-09-02] MEDS ORDERED: POTASSIUM CL 10 MEQ TAB PO ONE ×2 (08:00→08:15)
--- NOTE | 2018-09-02 08:45 | ASMTCMCOM ---
CM Note CM Note Notes: Spoke with Ch[facility] from [facility]. [facility] to provide nursing staff to assist with management of IV infusions. CM available should other needs arise. Plan: Home with [facility] and [facility] Date Signed: 09/02/2018 08:44 AM Electronically Signed By:Neyda Rodriges RN
[2018-09-02] MEDS: ERTAPENEM 1 GM in NS 100 ML IV SCH (09:58)
[2018-09-02] MEDS: DOCUSATE SODIUM 100 MG CAP PO PRN (10:03)
[2018-09-02] MEDS: FERROUS SULFATE 325 MG TAB PO SCH (10:03)
[2018-09-02] MEDS: ENOXAPARIN 40 MG/0.4 ML SYR SC SCH (10:05)
--- NOTE | 2018-09-02 14:30 | OBPP ---
Progress Note Assessment/Plan: Assessment: PPD 7 s/p - PP course complicated by pyelonephritis/sepsis. Now doing well on IV abx - Appreciate ID and Hospitalist management. Pyelo: - Will plan for continued IV Invanz until 09/11. - Spoke with Dr. Bartolome DOBBINS who coordinated everything for home health with regard to abx and PIV changes. - We'll change her IV today and then will need one additional change at home. Hypoxia: - S/p jeanne, feeling much better today, still has some pedal edema. - Acute issue is desats overnight while asleep - likely undiagnosed chronic sleep apnea. Will have her f/u with her PCP. Routine PP care: - Minimal bleeding, BF/pumping well - Pain well controlled. - Rh pos, Rubella immune, VZV immune. Baby on IV abx for 7d due to untreated GBS - tx plan completed today, clinically doing well Dispo: Home today, f/u with our office at 4 and 6 weeks for mood and PP check, respectively. Subjective/ Course: 08/27/18 11:10 Doing well. Pain well controlled with pain meds. Vag bleeding wnl, voiding, tolerating activity. Baby in NICU, on oxygen, receiving antibiotics while ruling out pneumonia vs TTN. going well with support. 08/29/18 11:11 Pt transferred to 3N this morning. She is feeling well, except for chills. She is pumping, tolerating PO. Denies heavy bleeding, fundus firm at U. 08/29/18 11:48 I came to see and examine the patient this am. She has been transferred to Medicine floor, step down in order to closely monitor her vital signs and status because of urosepsis and decompensation yesterday. Last night she had episodes of high fevers, tachycardia and hypotension and had a stat team called yesterday afternoon. Overnight her urine culture revealed Serratia which was multi-drug resistant and she has been switched to Merrepenum. She feels better this am, has not had a fever. She reports some heaviness in her chest but not SOB. She reports mod back pain bilaterally, no dysuria, no fundal tenderness or other symptoms. She is working on pumping and her baby Vikash is doing much better in the NICU today. 08/30/18 12:00 Pt was transferred back to the step down unit early this morning when she had sudden onset of increased O2 requirements. Currently she is resting comfortably , without any supplemental oxygen. Has been pumping and is doing well producing milk. Is voiding without difficulty. Lochia has decreased significantly, is changing a pad a few times per day. 08/31/18 09:40 Pt seen and examined. Pt is feeling much better this morning. Notes some mild cramping, but relief with Motrin. Minimal bleeding. Chava regular diet and voiding without difficulty. Denies any f/c/n/v/CP or SOB. No supplemental oxygen needed this am. She continues to pump and is producing milk. Baby boy is in NICU. 09/01/18 11:08 Doing well today. Feeling good. Pain well controlled with oral pain meds. Voiding and tolerating activity. Potential discharge tomorrow per infectious disease physician. 09/01/18 18:17 Pt appears good today. Minimally bleeding and urinating fine. some flank pain , lessening. BF well and also pumping and milk supported well. Excited about being able to get abx through home health. Mood doing ok. per hospitalist - rec'd additional Lasix for some SOB with exertion 09/02/18 15:02 Josey feels pretty good today - excited to go home if possible. No fever, chills, flank pain, etc. BF going well. Understands she'll need IV abx at home until 09/11. Objective: 08/31/18 05:10 09/02/18 06:10 Patient ABO/Rh A POSITIVE 08/26/18 03:40 Total Bilirubin 0.6 mg/dL (0.1-1.4) 08/30/18 09:10 Conjugated Bilirubin 0.2 mg/dL (0.0-0.5) 08/28/18 09:00 Unconjugated Bilirubin 0.5 mg/dL (0.0-1.1) 08/28/18 09:00 AST 22 IU/L (14-46) 08/30/18 09:10 ALT 34 IU/L (9-52) 08/30/18 09:10 Temp Pulse Resp BP Pulse Ox 36.6 C 59 L 18 122/82 H 97 09/02/18 06:00 09/02/18 06:00 09/02/18 06:00 09/02/18 06:00 09/02/18 06:00 Uterine Position/Fundal Height: At Umbilicus Uterine Tone: Firm
--- NOTE | 2018-09-02 15:06 | HOSPPROG ---
Hospitalist Progress Note Assessment/Plan: DIAGNOSES: * acute sepsis, resolved * acute pyelonephritis with Serratia marcescens and multiple drug resistance, on antibiotics * with delivery of her son Vikash on 08/26 *Hypoxemia, worse with exertion, now improved *Hypokalemia, replaced PLANS: * no need for further Lasix * Meropenem IV per ID, through 09/11 * post care * ok for d/c home from medical perspective Subjective: no cp or sob. no n/v. bp ok. still with mild pedal edema Objective: Vital Signs Temp Pulse Resp BP Pulse Ox 36.6 C 59 L 18 122/82 H 97 09/02/18 06:00 09/02/18 06:00 09/02/18 06:00 09/02/18 06:00 09/02/18 06:00 Laboratory Results 08/31/18 05:10 09/02/18 06:10 09/01/18 09/02/18 09/03/18 05:59 05:59 05:59 Intake Total 500 Output Total 1200 Balance -700 - Physical Exam Constitutional: no apparent distress Eyes: PERRL Ears, Nose, Mouth, Throat: moist mucous membranes, hearing normal Cardiovascular: regular rate and rhythym, edema (trace LE edema) Respiratory: no respiratory distress, no rales or rhonchi, clear to auscultation Gastrointestinal: normoactive bowel sounds Skin: warm Neurologic: AAOx3 Psychiatric: interacting appropriately, not anxious, not encephalopathic Lymph, Heme, Immunologic: No petechiae ICD10 Worksheet Patient Problems: Problems Problem Status Onset Labor and delivery, indication for care Acute (spontaneous vaginal delivery) Acute
--- NOTE | 2018-09-02 15:10 | OBGCSDC ---
General Delivery Information - General Info : 3 Para: 3 Abortions: 0 Type: Vaginal L&D Analgesia/Anesthesia Type: None Admission Date: 08/26/18 Labs: Patient ABO/Rh A POSITIVE 08/26/18 03:40 Hct 27.3 % (38.0-47.0) L 08/31/18 05:10 - Hospital Course Intrapartum: 08/26/18 04:00 Pt reports pain with contractions, reports occ urge to push. desires SVE at this time. : PP COURSE SUMMARY: Discharging today 09/02/18 Pt had uncomplicated on 08/26/18 - EBL 150, 1st degree lac. Pt was GBS positive and did not receive adequate abx treatment, baby ultimately treated with 7d of IV abx due to suspected infection. On PPD2 she developed fever, flank pain, and clinical sepsis - STAT team called and pt transfered to ICU for presumed pyelonephritis. Ultimately treated with multiple IV abx agents, at the time of discharge plan is IV Invanz until 09/11 - to be coordinated with home health. Did develop issues with hypoxemia and desaturations as well - eval'd by hospitalists for this, felt to be related to fluid overload from sepsis protocol as well as some component of likely undiagnosed chronic CAREN. She will discharge today on PPD7 with plans to continue abx until 09/11. Fu with our office at 4 and 6 wks PP. No f/u with ID unless otherwise indicated. No f/u with hospitalists unless otherwise indicated. She was instructed to touch base with her PCP re: CAREN, and potentially urology referral given recurrent UTI and pyelo. May need to rule out reflux, etc. 08/27/18 11:10 Doing well. Pain well controlled with pain meds. Vag bleeding wnl, voiding, tolerating activity. Baby in NICU, on oxygen, receiving antibiotics while ruling out pneumonia vs TTN. going well with support. 08/29/18 11:11 Pt transferred to this morning. She is feeling well, except for chills. She is pumping, tolerating PO. Denies heavy bleeding, fundus firm at U. 08/29/18 11:48 I came to see and examine the patient this am. She has been transferred to Medicine floor, step down in order to closely monitor her vital signs and status because of urosepsis and decompensation yesterday. Last night she had episodes of high fevers, tachycardia and hypotension and had a stat team called yesterday afternoon. Overnight her urine culture revealed Serratia which was multi-drug resistant and she has been switched to Merrepenum. She feels better this am, has not had a fever. She reports some heaviness in her chest but not SOB. She reports mod back pain bilaterally, no dysuria, no fundal tenderness or other symptoms. She is working on pumping and her baby Vikash is doing much better in the NICU today. 08/30/18 12:00 Pt was transferred back to the step down unit early this morning when she had sudden onset of increased O2 requirements. Currently she is resting comfortably , without any supplemental oxygen. Has been pumping and is doing well producing milk. Is voiding without difficulty. Lochia has decreased significantly, is changing a pad a few times per day. 08/31/18 09:40 Pt seen and examined. Pt is feeling much better this morning. Notes some mild cramping, but relief with Motrin. Minimal bleeding. Chava regular diet and voiding without difficulty. Denies any f/c/n/v/CP or SOB. No supplemental oxygen needed this am. She continues to pump and is producing milk. Baby boy is in NICU. 09/01/18 11:08 Doing well today. Feeling good. Pain well controlled with oral pain meds. Voiding and tolerating activity. Potential discharge tomorrow per infectious disease physician. 09/01/18 18:17 Pt appears good today. Minimally bleeding and urinating fine. some flank pain , lessening. BF well and also pumping and milk supported well. Excited about being able to get abx through home health. Mood doing ok. per hospitalist - rec'd additional Lasix for some SOB with exertion 09/02/18 15:02 Josey feels pretty good today - excited to go home if possible. No fever, chills, flank pain, etc. BF going well. Understands she'll need IV abx at home until 09/11. 09/02/18 15:09 09/02/18 15:11 09/02/18 15:13 Vaginal - Delivery Provider Delivery Physician/CNM: Sylvia Waller - Diagnosis Labor: Spontaneous Rupture of Membranes Type: Spontaneous Amniotic Fluid Color: Clear Laceration: 1st Degree Repair: 3-0, Vicryl Delivery Events: None - Delivery EBL: 150 [place] Data SILVESTRE: 08/30/18 Gestational Age: 40 week(s) and 3 day(s) [place] Delivery Date: 08/26/18 Delivery Time: 04:46 Sex of : Male Weight (gm): 3442 kg Score (1 Min): 8 Score (5 Min): 8 Discharge Information - Discharge Information Condition: Fair Instruction/Follow Up: See Instruction Sheet, Four Weeks, Six Weeks
--- NOTE | 2018-09-02 15:41 | ASMTCMCOM ---
CM Note CM Note Notes: Patient medically cleared for discharge to home. Transfer summary per ID sent to [facility]. Also called [facility] to alert them that dc is today. Patient address confirmed. CM available should other needs arise. Plan: DC to home with [facility] via [facility] Date Signed: 09/02/2018 03:40 PM Electronically Signed By:Neyda Rodriges RN
[2018-09-02] MEDS: ACETAMINOPHEN 500 MG TAB PO PRN (15:53)
[2018-09-02 17:14] LABS: PLATELET COUNT 308 10^3/uL (150-400)
[2018-09-02 18:30] VITALS: BP 126/85
== END 2018-09-02 19:31 | disposition home health service (06) | DRG 805 ==
LOC: FLD 01:01 → OBSVTOIN 01:01 → FOB 07:50 → F3E 08-29 09:35 → FOB 08-29 20:00 → F2N 08-30 06:29 → FOB 08-30 21:00
PROVIDERS: ADMIT Advanced Practice Midwife; ATTEND Advanced Practice Midwife
PROC: 10E0XZZ Delivery of Products of Conception, External Approach (ICD-10-PCS; principal; 2018-08-26)
PROC: 0HQ9XZZ Repair Perineum Skin, External Approach (ICD-10-PCS; principal; 2018-08-26)
DX: O70.0 First degree perineal laceration during delivery (principal); O99.825 Streptococcus B carrier state complicating the puerperium; O86.21 Infection of kidney following delivery; N10 Acute pyelonephritis; B96.89 Other specified bacterial agents as the cause of diseases classified elsewhere; O85 Puerperal sepsis; O99.283 Endocrine, nutritional and metabolic diseases complicating pregnancy, third trimester; E03.9 Hypothyroidism, unspecified; O99.02 Anemia complicating childbirth; E87.6 Hypokalemia; Z3A.40 40 weeks gestation of pregnancy; Z37.0 Single live birth
CPT/HCPCS: G0008; J0295; J1335; J1650; J1940; J2185; J2590; J3105; J3475; Q9967